=== PATIENT | female | born 1950 | race Caucasian/White ===

== ENCOUNTER 2020-07-03 15:27 | Emergency (ER) | payer MEDICARE, BC ==
[~2020-07-03] VITALS: Ht 157.5 cm; Wt 88.0 kg
[~2020-07-03 15:27] MED LIST: HYDR-3240 PO; ROSU10TA2 PO; SYNTHROID PO; VENL225T PO
--- NOTE | 2020-07-03 16:04 | NUR ---
BIB [facility] FOR SOB, AND ON EXERTION RA SAT 80'S. THYROIDECTOMY 06/09. SINCE THEN DIFFICULTY SLEEPING. PRESSURE SIDE OF NECK. NECK STIFFNESS. PAIN SINCE SURGERY.
[2020-07-03 17:40] LABS: BASOPHILS % (AUTO) 2 % (0-1); EOSINOPHILS % (AUTO) 4 % (1-7); LYMPHOCYTES % (AUTO) 29 % (22-44); MEAN CORPUSCULAR HEMOGLOBIN 29.4 pg (27.0-34.8); MEAN CORPUSCULAR HGB CONC 33.1 g/dL (32.4-35.8); MEAN PLATELET VOLUME 8.2 fL (7.4-10.4); MONOCYTES % (AUTO) 11 % (2-9); NEUTROPHILS % (AUTO) 55 % (42-75); PLATELET COUNT 341 x10^3/uL (130-400); RED BLOOD COUNT 5.11 x10^6/uL (3.82-5.3); RED CELL DISTRIBUTION WIDTH 14.7 % (9.6-15.2)
[2020-07-03 17:48] LABS: ALANINE AMINOTRANSFERASE 29 U/L (12-78); ALBUMIN 3.9 g/dL (3.4-5.0); ANION GAP 5 mmol/L (5-15); CHLORIDE 108 mmol/L (98-107)
[2020-07-03 17:50] LABS: MD NO
[2020-07-03 17:53] LABS: ALKALINE PHOSPHATASE 116 U/L (45-117); BILIRUBIN,TOTAL 0.5 mg/dL (0.2-1.0); CREATININE 0.77 mg/dL (0.55-1.02); TOTAL PROTEIN 7.7 g/dL (6.4-8.2); TROPONIN I < 0.015 ng/mL (0.000-0.045)
--- NOTE | 2020-07-03 18:35 | NUR ---
PATIENT 94% ON ROOM AIR BUT SHE DOES STATES SHE FEELS LIKE IF SHE'S NOT SITTING UPRIGHT THAT SHE CAN'T BREATH WELL. COUGH.
--- NOTE | 2020-07-03 18:58 | NUR ---
REPORT TO PRUDENCE BEDSIDE. PATIENT ON ROOM AIR 95% BUT HR UP TO 150 AND SHE IS TEARFUL/UPSET AND CRYING STATES CAN ONLY BREATHE SITTING UP. SHE IS EMOTIONAL. SBAR. PRUDENCE TO TALK TO .
[2020-07-03 19:37] VITALS: BP 138/91
--- NOTE | 2020-07-03 19:37 | NUR ---
96% RA, 18 RR/MIN. PT HR [phone]. PT EDUCATED ON DEEP BREATHING EXERCISES AND HR DECREASES WHEN DOING SO. PT NOW CALM AND STATES SHE IS FEELING BETTER AND READY TO GO HOME.
--- NOTE | 2020-07-03 19:37 | NUR ---
LATE ENTRY, REPORT RECEIVED FROM NETTIE
== END 2020-07-03 19:53 | disposition home or self-care (01) ==
LOC: ED 19:51
DX: J20.8 Acute bronchitis due to other specified organisms (principal); Z20.828 Contact with and (suspected) exposure to other viral communicable diseases; R06.02 Shortness of breath; R06.00 Dyspnea, unspecified; M54.2 Cervicalgia; R05 Cough; R00.0 Tachycardia, unspecified; E89.0 Postprocedural hypothyroidism
CPT/HCPCS: 71045; 80053; 83880; 84484; 85025; 87635; 93005; 99285

== ENCOUNTER 2020-07-29 14:14 | Inpatient (IN) | payer MEDICARE, BC ==
[~2020-07-29] VITALS: Ht 157.5 cm; Wt 79.7 kg
--- NOTE | 2020-07-29 14:59 | NUR ---
PT COMES IN BROUGHT OVER BY ABLE BODIED SEAMAN'S FOR A NEAR SYNCOPAL EPISODE DURING A SCHEDULED CXR. PT STATES SHE HAS BRONCHITIS AND WAS DOING A FOLLOWUP CXR WHEN SHE FELT SOB, LIGHTHEADED, AND FAINT. PT STATES SHE FELT LIKE HER HEART WAS RACING AND "MY CHEST FEELS TIGHT WHEN MY HEART RACES". ALSO C/O NAUSEA, LEFT NECK AND LOW BACK PAIN PT STATES A HX OF THYROIDECTOMY 06/06, ANXIETY, DEPRESSION, AND HIGH CHOLESTEROL. MONITORS CONNECTED. EKG COMPLETE. WARM BLANKETS PROVIDED
--- NOTE | 2020-07-29 15:27 | NUR ---
RN at bedside. Pt tearful.
[2020-07-29] MEDS ORDERED: LORazepam 1MG TABLET ONE (15:39)
--- NOTE | 2020-07-29 15:41 | NUR ---
PT RESTING ON GURNEY. STATES CONTINUED NECK PAIN AND INDIGESTION. ORDERED MEDICATIONS ADMINISTERED. PT CRYING DUE TO RECENT LOSS OF LOVED ONE. VSS. WILL CONTINUE TO MONITOR
[2020-07-29] MEDS ORDERED: LORazepam 1MG TABLET PO ONE (16:00)
--- NOTE | 2020-07-29 16:13 | NUR ---
KNITTED GARMENT FINISHER AT BEDSIDE
--- NOTE | 2020-07-29 16:38 | NUR ---
PT ON RESTING ON ZAINA TALKING ON HER PHONE. SHE IS REQUESTING TO BE DISHCARGED. PT EDUCATED THAT SHE WILL NEED A RIDE HOME DUE TO MEDICATION ADMINISTRATION. PT STATES HER SISTER WILL BE ABLE TO COME PICK HER UP.
[2020-07-29 17:19] LABS: ALBUMIN 3.7 g/dL (3.4-5.0); ANION GAP 5 mmol/L (5-15); CALCIUM 9.8 mg/dL (8.5-10.1); CHLORIDE 110 mmol/L (98-107)
[2020-07-29 17:20] LABS: D-DIMER 0.24 ug/mlFEU (0.00-0.52); INTERNATIONAL NORMALIZED RATIO 0.95 (0.93-1.1); PROTHROMBIN TIME 10.1 Seconds (9.6-11.5)
[2020-07-29 17:26] LABS: CREATININE 0.77 mg/dL (0.55-1.02); FREE T4 (FREE THYROXINE) 1.53 ng/dL (0.76-1.46); TROPONIN I 0.022 ng/mL (0.000-0.045)
[2020-07-29 18:07] LABS: BASOPHILS % (AUTO) 1 % (0-1); EOSINOPHILS % (AUTO) 1 % (1-7); LYMPHOCYTES % (AUTO) 25 % (22-44); MEAN CORPUSCULAR HEMOGLOBIN 29.5 pg (27.0-34.8); MEAN CORPUSCULAR HGB CONC 33.6 g/dL (32.4-35.8); MEAN PLATELET VOLUME 8.1 fL (7.4-10.4); MONOCYTES % (AUTO) 10 % (2-9); NEUTROPHILS % (AUTO) 63 % (42-75); PLATELET COUNT 300 x10^3/uL (130-400); RED BLOOD COUNT 5.27 x10^6/uL (3.82-5.3); RED CELL DISTRIBUTION WIDTH 14.1 % (9.6-15.2)
[2020-07-29 18:11] LABS: MD NO
--- NOTE | 2020-07-29 18:36 | NUR ---
PT RESTING ON ZAINA. VSSameer. DENA.
--- NOTE | 2020-07-29 18:41 | NUR ---
MD AT BEDSIDE TO DISCUSS PLAN OF CARE WITH PT. QUESTIONS ANSWERED
[2020-07-29] MEDS ORDERED: SODIUM CHLORIDE 0.9% 1,000 ML IV ONE (19:00)
[2020-07-29] MEDS ORDERED: SODIUM CHLORIDE FLUSH 10ML SYR IVF PRN (19:00)
--- NOTE | 2020-07-29 19:10 | NUR ---
PT RESTING ON GURNEY WITH FREQUENT BOUTS OF CRYING. IV STARTED, ORDERED MEDICATIONS INFUSING. VSS. NAD. WILL CONTINUE TO MONITOR
[2020-07-29] MEDS ORDERED: DOCUSATE 100 MG CAPSULE PO PRN (19:30)
[2020-07-29] MEDS ORDERED: morphine SULFATE 10 MG/ML, 1ML IVPush PRN (19:30)
[2020-07-29] MEDS ORDERED: ONDANSETRON 2MG/ML, 2ML IVPush PRN (19:30)
[2020-07-29] MEDS ORDERED: ONDANSETRON ODT 4 MG PO PRN (19:30)
[2020-07-29] MEDS ORDERED: hydrALAzine 20 MG/ML, 1ML IVPush PRN (19:30)
[2020-07-29] MEDS ORDERED: BISACODYL 10 MG SUPP PR PRN (19:30)
[2020-07-29] MEDS ORDERED: PROMETHAZINE 25 MG/ML, 1ML IM PRN (19:30)
[2020-07-29] MEDS ORDERED: OXYcodone IR 5MG TABLET PO PRN (19:30)
[2020-07-29] MEDS ORDERED: POLYETHYLENE GLYCOL 17 GM PACKET PO PRN (19:30)
--- NOTE | 2020-07-29 20:06 | NUR ---
REPORT GIVEN TO GALILEA DAHL
[2020-07-29] MEDS ORDERED: HYDR-3240 PO (20:07)
--- NOTE | 2020-07-29 20:08 | NUR ---
MED REC COMPLETE
[2020-07-29 20:50] VITALS: BP 120/75
[2020-07-29] MEDS: ATENOLOL 25 MG TABLET PO SCH (21:07)
[2020-07-29] MEDS: VENLAFAXINE 75 MG CAP ER PO SCH (21:08)
[2020-07-29] MEDS: ATORVASTATIN 20 MG TABLET PO SCH (21:09)
[2020-07-29] MEDS: ACETAMINOPHEN 325 MG TABLET PO PRN (21:09)
[2020-07-29] MEDS: ENOXAPARIN 40 MG/0.4 ML SQ SCH (21:10)
[2020-07-30 01:35] VITALS: BP 92/64
[2020-07-30] MEDS ORDERED: LORazepam 1MG TABLET PO ONE (02:00)
[2020-07-30] MEDS: ACETAMINOPHEN 325 MG TABLET PO PRN ×3 (02:01→19:21)
[2020-07-30 05:49] LABS: BASOPHILS % (AUTO) 1 % (0-1); EOSINOPHILS % (AUTO) 2 % (1-7); LYMPHOCYTES % (AUTO) 34 % (22-44); MD NO; MEAN CORPUSCULAR HEMOGLOBIN 29.3 pg (27.0-34.8); MEAN CORPUSCULAR HGB CONC 33.3 g/dL (32.4-35.8); MEAN PLATELET VOLUME 7.7 fL (7.4-10.4); MONOCYTES % (AUTO) 11 % (2-9); NEUTROPHILS % (AUTO) 53 % (42-75); PLATELET COUNT 283 x10^3/uL (130-400); RED BLOOD COUNT 4.69 x10^6/uL (3.82-5.3); RED CELL DISTRIBUTION WIDTH 14.6 % (9.6-15.2)
[2020-07-30] MEDS: ATENOLOL 25 MG TABLET PO SCH ×2 (06:00→06:23)
[2020-07-30 06:03] LABS: CHLORIDE 113 mmol/L (98-107)
[2020-07-30] MEDS: LEVOTHYROXINE 100 MCG TABLET PO SCH (06:07)
[2020-07-30 06:10] VITALS: BP_SYST 118; BP_SYST 89; BP_DIAS 65; BP_DIAS 85
[2020-07-30 06:13] LABS: ALANINE AMINOTRANSFERASE 69 U/L (12-78); ALBUMIN 3.1 g/dL (3.4-5.0); ALKALINE PHOSPHATASE 107 U/L (45-117); ANION GAP 5 mmol/L (5-15); BILIRUBIN,TOTAL 0.3 mg/dL (0.2-1.0); CHOL/HDL RATIO 4.3; CHOLESTEROL, TOTAL 159 mg/dL (140-239); CREATININE 0.77 mg/dL (0.55-1.02); HDL CHOL % 23 % (28-40); HDL CHOLESTEROL (DIRECT) 37 mg/dL (40-60); LDL CHOLESTEROL,CALCULATED 100 mg/dL (54-169); LDL/HDL RATIO 2.7 (0.5-3.0); TRIGLYCERIDES 109 mg/dL (50-200); VLDL CHOLESTEROL 22 mg/dL (0-25)
[2020-07-30] MEDS ORDERED: LORazepam 1MG TABLET ONE (06:36)
[2020-07-30 11:00] VITALS: BP_SYST 102; BP_SYST 107; BP_SYST 111; BP_DIAS 68; BP_DIAS 75
[2020-07-30 14:00] VITALS: BP 107/72
[2020-07-30] MEDS: FUROSEMIDE 20 MG TABLET PO SCH (18:18)
[2020-07-30] MEDS: VENLAFAXINE 75 MG CAP ER PO SCH (18:19)
[2020-07-30 18:20] VITALS: BP 115/78
[2020-07-30 20:00] VITALS: BP 100/67
[2020-07-30] MEDS ORDERED: MELATONIN 5 MG TABLET PO PRN (21:00)
[2020-07-30] MEDS ORDERED: CARVEDILOL 3.125 MG TABLET PO SCH (21:00)
[2020-07-30] MEDS: ATORVASTATIN 20 MG TABLET PO SCH (21:21)
[2020-07-30] MEDS: ENOXAPARIN 40 MG/0.4 ML SQ SCH (21:22)
[2020-07-31 02:08] VITALS: BP 105/70
[2020-07-31] MEDS: ASPIRIN 81 MG TABLET EC PO SCH (05:07)
[2020-07-31] MEDS: LEVOTHYROXINE 100 MCG TABLET PO SCH (05:07)
[2020-07-31 06:51] LABS: BASOPHILS % (AUTO) 1 % (0-1); EOSINOPHILS % (AUTO) 2 % (1-7); LYMPHOCYTES % (AUTO) 18 % (22-44); MEAN CORPUSCULAR HEMOGLOBIN 29.4 pg (27.0-34.8); MEAN CORPUSCULAR HGB CONC 33.4 g/dL (32.4-35.8); MEAN PLATELET VOLUME 7.9 fL (7.4-10.4); MONOCYTES % (AUTO) 9 % (2-9); NEUTROPHILS % (AUTO) 71 % (42-75); PLATELET COUNT 269 x10^3/uL (130-400); RED BLOOD COUNT 4.91 x10^6/uL (3.82-5.3); RED CELL DISTRIBUTION WIDTH 14.4 % (9.6-15.2)
[2020-07-31 07:06] LABS: ALANINE AMINOTRANSFERASE 52 U/L (12-78); ALBUMIN 3.2 g/dL (3.4-5.0); ANION GAP 6 mmol/L (5-15); CALCIUM 8.5 mg/dL (8.5-10.1); CHLORIDE 113 mmol/L (98-107)
[2020-07-31 07:09] LABS: ALKALINE PHOSPHATASE 107 U/L (45-117); BILIRUBIN,TOTAL 0.4 mg/dL (0.2-1.0); CREATININE 0.78 mg/dL (0.55-1.02); TOTAL PROTEIN 6.3 g/dL (6.4-8.2)
[2020-07-31 07:12] LABS: MD NO
[2020-07-31 08:10] VITALS: BP 108/57
[2020-07-31] MEDS ORDERED: REGADENOSON 0.4 MG/5 ML SYRINGE ONE (08:37)
[2020-07-31 09:28] LABS: TROPONIN I 0.015 ng/mL (0.000-0.045)
[2020-07-31] MEDS: LISINOPRIL 5 MG TABLET PO SCH (11:13)
[2020-07-31] MEDS: FUROSEMIDE 20 MG TABLET PO SCH (11:13)
[2020-07-31] MEDS: ACETAMINOPHEN 325 MG TABLET PO PRN ×2 (11:22→21:14)
[2020-07-31 12:44] VITALS: BP 102/68
[2020-07-31] MEDS: VENLAFAXINE 75 MG CAP ER PO SCH (18:46)
[2020-07-31 18:51] VITALS: BP 109/62
[2020-07-31] MEDS: ATORVASTATIN 20 MG TABLET PO SCH (21:14)
[2020-07-31] MEDS: ENOXAPARIN 40 MG/0.4 ML SQ SCH (21:14)
[2020-08-01 00:15] VITALS: BP 110/74
[2020-08-01] MEDS: LEVOTHYROXINE 100 MCG TABLET PO SCH (06:04)
[2020-08-01] MEDS: ASPIRIN 81 MG TABLET EC PO SCH (06:04)
[2020-08-01 06:44] VITALS: BP 112/81
[2020-08-01] MEDS: LISINOPRIL 5 MG TABLET PO SCH (08:17)
[2020-08-01] MEDS: FUROSEMIDE 20 MG TABLET PO SCH (08:17)
[2020-08-01] MEDS: ACETAMINOPHEN 325 MG TABLET PO PRN (08:17)
[2020-08-01] MEDS ORDERED: ASPI81TA45 PO (10:59)
[2020-08-01] MEDS ORDERED: POTA20TA89 PO (10:59)
[2020-08-01] MEDS ORDERED: LISI5TAB7 PO (10:59)
[2020-08-01] MEDS ORDERED: FURO20TA3 PO (10:59)
[2020-08-01 12:34] VITALS: BP 112/80
[2020-08-01] MEDS ORDERED: LORazepam 1MG TABLET PO ONE (15:30)
== END 2020-08-01 17:26 | disposition home or self-care (01) | DRG 189 ==
LOC: ED 16:59 → EDIP 18:58 → OBSVTOIN 18:58 → INTOOBSV 18:58 → 5SO 20:21
PROVIDERS: ADMIT Internal Medicine; ATTEND Family Medicine
DX: J96.01 Acute respiratory failure with hypoxia (principal); F33.1 Major depressive disorder, recurrent, moderate; R55 Syncope and collapse; F41.8 Other specified anxiety disorders; E03.9 Hypothyroidism, unspecified; E78.5 Hyperlipidemia, unspecified; F43.23 Adjustment disorder with mixed anxiety and depressed mood; Z79.4 Long term (current) use of insulin; Z87.891 Personal history of nicotine dependence
CPT/HCPCS: 36415; 78452; 80048; 80053; 80061; 82040; 83036; 83735; 84439; 84443; 84484; 85025; 85379; 85610; 85730; 93005; 93017; 93306; 96372; 99285; G0378; J1650; J2785; A9502; C9898

== ENCOUNTER → 2020-07-29 | Outpatient (CLI) | payer MEDICARE, BC | END | disposition home or self-care (01) | LOC: RAD 13:39 | PROVIDERS: ATTEND Family Medicine | DX: J98.4 Other disorders of lung (principal); R06.02 Shortness of breath | CPT/HCPCS: 71046 ==

== ENCOUNTER → 2020-08-20 | Outpatient (CLI) | payer MEDICARE, BC ==
[~2020-08-20] MED LIST changes: +ASPI81TA45 PO; +FURO20TA3 PO; +HYDR-1067 PO; -HYDR-3240 PO; +LISI5TAB7 PO; +OMNIPAQUE 350 MG/ML, 75ML BOTTLE ONE; +POTA20TA89 PO
== END | disposition home or self-care (01) ==
LOC: CFH 10:32
PROVIDERS: ATTEND Physician Assistant
DX: J98.4 Other disorders of lung (principal); J98.11 Atelectasis; R06.02 Shortness of breath
CPT/HCPCS: 71260; Q9967